=== PATIENT | male | born 1960 | race Caucasian/White ===

== ENCOUNTER 2019-08-29 13:12 | Emergency (ER) | payer BC ==
[2019-08-29] MEDS ORDERED: Lidocaine 2% PF 5 ML VIAL ONE ×2 (13:48→13:49)
--- NOTE | 2019-08-29 16:46 | RAD ---
LEFT HAND THREE VIEWS: 08/29/19 No major fracture or foreign body was seen. Degenerative changes are seen in many of the IP joints. T he metacarpals all appeared intact. There was an equivocal line in the proximal phalanx of the ring f wally on the PA view, but this area appeared normal on all other views. The carpals showed no acute c hange. IMPRESSION: No definite acute fracture. Chronic changes throughout the hand, mainly in the IP joints. See comment s above regarding the proximal phalanx of the ring finger. POS: HOME
== END 2019-08-29 14:46 | disposition home or self-care (01) ==
LOC: BURERS 13:12
DX: S66.323A Laceration of extensor muscle, fascia and tendon of left middle finger at wrist and hand level, initial encounter (principal); I10 Essential (primary) hypertension; E78.5 Hyperlipidemia, unspecified; E78.00 Pure hypercholesterolemia, unspecified; Z79.899 Other long term (current) drug therapy; W29.3XXA Contact with powered garden and outdoor hand tools and machinery, initial encounter
CPT/HCPCS: 12002; J2001